=== PATIENT | male | born 1965 | race African-American/Black ===

== ENCOUNTER → 2020-07-07 | Outpatient (CLI) | payer MEDICARE ==
[2020-06-23 11:00] VITALS: BP 115/69
[~2020-07-07] MED LIST: ACET325T9 PO; AMOX1TAB61 PO; DIPHENHYDRAMINE HCL IVP; DOCU-153 PO; LACT1CAP19 PO; PIPE3.377 IV; TRAM50TA PO
[2020-07-07 17:27] LABS: BASO # 0.1 x10^3/uL (0.0-0.2); BASO % 2 % (0-3); EOS # 0.2 x10^3/uL (0.0-0.7); EOS % 5 % (0-3); HEMATOCRIT 31.2 % (39.0-53.0); HEMOGLOBIN 9.9 g/dL (13.0-17.5); LYMPH % 38 % (24-48); MEAN CORPUSCULAR HEMOGLOBIN 24 pg (25-35); MEAN CORPUSCULAR HGB CONC 32 g/dL (31-37); MEAN CORPUSCULAR VOLUME 74 fL (79-100); MONO # 0.4 x10^3/uL (0.0-1.1); MONO % 7 % (0-9); NEUT # 2.5 x10^3/uL (1.8-7.7); NEUT % 48 % (31-73); PLATELET COUNT 284 x10^3/uL (140-400); RED BLOOD COUNT 4.21 x10^6/uL (4.30-5.70); RED CELL DISTRIBUTION WIDTH 15.5 % (11.5-14.5); WHITE BLOOD COUNT 5.2 x10^3/uL (4.0-11.0)
[2020-07-07 17:48] LABS: C-REACTIVE PROTEIN 4.8 mg/L (0-3.3); GFR 93.5
== END ==
LOC: SPEC 17:16
PROVIDERS: ATTEND Internal Medicine Infectious Disease
DX: I96 Gangrene, not elsewhere classified (principal); M86.9 Osteomyelitis, unspecified
CPT/HCPCS: 36415; 82565; 84520; 85025; 86140

== ENCOUNTER 2021-03-23 10:28 | Emergency (ER) | payer MEDICARE ==
[~2021-03-23] VITALS: Ht 185.4 cm; Wt 98.6 kg
[~2021-03-23 10:28] MED LIST changes: +DOCU-148 PO; -DOCU-153 PO
[2021-03-23] MEDS ORDERED: MORPHINE SULFATE 4 MG/ML INJ. IV/SQ PRN (11:00)
[2021-03-23] MEDS ORDERED: cloNIDine HCL 0.1 MG TABLET PO ONE (11:00)
[2021-03-23] MEDS: IV NORMAL SALINE 1000ML BAG 1,000 ML IV SCH ×2 (11:07→11:46)
[2021-03-23] MEDS ORDERED: ERTAPENEM 1GM IVPB(GENERIC) NS 50 ML IV ONE (11:15)
[2021-03-23 11:17] LABS: BASO % 0 % (0-3); EOS # 0.2 x10^3/uL (0.0-0.7); EOS % 2 % (0-3); HEMATOCRIT 39.8 % (39.0-53.0); HEMOGLOBIN 12.6 g/dL (13.0-17.5); LYMPH # 1.2 x10^3/uL (1.0-4.8); LYMPH % 15 % (24-48); MEAN CORPUSCULAR HEMOGLOBIN 24 pg (25-35); MEAN CORPUSCULAR HGB CONC 32 g/dL (31-37); MEAN CORPUSCULAR VOLUME 75 fL (79-100); MONO # 0.6 x10^3/uL (0.0-1.1); MONO % 8 % (0-9); NEUT % 75 % (31-73); PLATELET COUNT 232 x10^3/uL (140-400); RED CELL DISTRIBUTION WIDTH 14.5 % (11.5-14.5); WHITE BLOOD COUNT 8.1 x10^3/uL (4.0-11.0)
[2021-03-23 11:27] LABS: ALBUMIN 3.2 g/dL (3.4-5.0); ALBUMIN/GLOBULIN RATIO 0.7 (1.0-1.7); CALCIUM 8.8 mg/dL (8.5-10.1); GFR 93.5; TOTAL BILIRUBIN 0.5 mg/dL (0.2-1.0); TOTAL PROTEIN 7.9 g/dL (6.4-8.2)
[2021-03-23] MEDS ORDERED: INSULIN REGULAR 100 UNIT/ML 3ML VIAL. IV ONE (11:45)
--- NOTE | 2021-03-23 11:57 | PHYS DOC ---
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 Patient denies any fever. Reports small amount of drainage from the wound on the right third toe. Denies any chest pain or shortness of breath. Denies any injuries. States he does not have a primary care doctor right now. He states around July he had amputation of the right second toe. He states he used to follow-up with infectious disease and wound clinic until his wound healed up. (DARCIE STOCK BALLAST INSPECTOR) Review of Systems: Review of Systems: Constitutional: Denies fever or chills. [] Eyes: Denies change in visual acuity. [] HENT: Denies nasal congestion or sore throat. [] Respiratory: Denies cough or shortness of breath. [] Cardiovascular: Denies chest pain or edema. [] GI: Denies abdominal pain, nausea, vomiting, bloody stools or diarrhea. [] : Denies dysuria. [] Musculoskeletal: Denies back pain or joint pain. [] Integument: Reports wound to the right great toe and right third toe. Neurologic: Denies headache, focal weakness or sensory changes. [] Psychiatric: Denies depression or anxiety. [] (DARCIE STOCK BALLAST INSPECTOR) Heart Score: C/O Chest Pain: N/A Risk Factors: Risk Factors: DM, Current or recent (<one month) smoker, HTN, HLP, family history of CAD, obesity. Risk Scores: Score 0 - 3: 2.5% MACE over next 6 weeks - Discharge Home Score 4 - 6: 20.3% MACE over next 6 weeks - Admit for Clinical Observation Score 7 - 10: 72.7% MACE over next 6 weeks - Early Invasive Strategies (DARCIE STOCK BALLAST INSPECTOR) Current Medications: Current Medications Medications (Trade) Dose Ordered Sig/Glenn Start Time Stop Time Status Last Admin Dose Admin Clonidine HCl (Catapres) 0.1 mg 1X ONCE 03/23/21 11:00 03/23/21 11:01 DC Ertapenem 50 ml @ 100 mls/hr 1X ONCE 03/23/21 11:15 03/23/21 11:44 DC 03/23/21 11:44 100 MLS/HR Insulin Human Regular (HumuLIN R VIAL) 8 unit 1X ONCE 03/23/21 11:45 03/23/21 11:46 Morphine Sulfate (Morphine Sulfate) 4 mg PRN Q15MIN PRN 03/23/21 11:00 03/24/21 10:59 Sodium Chloride 1,000 ml @ 1,000 mls/hr Q1H 03/23/21 11:00 03/23/21 13:23 03/23/21 11:07 1,000 MLS/HR (DARCIE STOCK BALLAST INSPECTOR) Allergies: Allergies: Allergies Coded Allergies Type Severity Reaction Last Updated Verified No Known Drug Allergies 06/20/20 No (DARCIE STOCK BALLAST INSPECTOR) Physical Exam: PE: Constitutional: Well developed, well nourished, no acute distress, non-toxic appearance. [] HENT: Normocephalic, atraumatic, bilateral external ears normal, oropharynx moist, no oral exudates, nose normal. [] Eyes: PERRLA, EOMI, conjunctiva normal, no discharge. [] Neck: Normal range of motion, no tenderness, supple, no stridor. [] Cardiovascular:Heart rate regular rhythm, no murmur [] Lungs & Thorax: Bilateral breath sounds clear to auscultation [] Abdomen: Bowel sounds normal, soft, no tenderness, no masses, no pulsatile masses. [] Skin: Right second toe is missing. Right great toe lateral aspect distal end with the callused area roughly 2 x 2 cm. The area has some open regions. Right third toe with 2 wounds, 1 on the medial aspect proximal and roughly 2 x 0.5 cm, no drainage to this region. Right third toe ventral aspect with another open wound roughly 1 x 1 cm on the proximal end. Adequate sensation to the right toes. +2 right pedal pulse. Full range of motion to the right toes. Cap refill less than 2 seconds the right toes. Back: No tenderness, no CVA tenderness. [] Extremities: No tenderness, no cyanosis, no clubbing, ROM intact, no edema. [] Neurologic: Alert and oriented X 3, normal motor function, normal sensory function, no focal deficits noted. [] Psychologic: Affect normal, judgement normal, mood normal. [] (DARCIE STOCK APRN) Current Patient Data: Labs: Laboratory Tests Test 03/23/21 10:53 White Blood Count 8.1 x10^3/uL (4.0-11.0) Red Blood Count 5.30 x10^6/uL (4.30-5.70) Hemoglobin 12.6 g/dL (13.0-17.5) L Hematocrit 39.8 % (39.0-53.0) Mean Corpuscular Volume 75 fL (79-100) L Mean Corpuscular Hemoglobin 24 pg (25-35) L Mean Corpuscular Hemoglobin Concent 32 g/dL (31-37) Red Cell Distribution Width 14.5 % (11.5-14.5) Platelet Count 232 x10^3/uL (140-400) Neutrophils (%) (Auto) 75 % (31-73) H Lymphocytes (%) (Auto) 15 % (24-48) L Monocytes (%) (Auto) 8 % (0-9) Eosinophils (%) (Auto) 2 % (0-3) Basophils (%) (Auto) 0 % (0-3) Neutrophils # (Auto) 6.0 x10^3/uL (1.8-7.7) Lymphocytes # (Auto) 1.2 x10^3/uL (1.0-4.8) Monocytes # (Auto) 0.6 x10^3/uL (0.0-1.1) Eosinophils # (Auto) 0.2 x10^3/uL (0.0-0.7) Basophils # (Auto) 0.0 x10^3/uL (0.0-0.2) Sodium Level 129 mmol/L (136-145) L Potassium Level 3.0 mmol/L (3.5-5.1) L Chloride Level 91 mmol/L (98-107) L Carbon Dioxide Level 27 mmol/L (21-32) Anion Gap 11 (6-14) Blood Urea Nitrogen 3 mg/dL (8-26) L Creatinine 1.0 mg/dL (0.7-1.3) Estimated GFR (Cockcroft-Gault) 93.5 BUN/Creatinine Ratio 3 (6-20) L Glucose Level 532 mg/dL (70-99) *H Calcium Level 8.8 mg/dL (8.5-10.1) Total Bilirubin 0.5 mg/dL (0.2-1.0) Aspartate Amino Transferase (AST) 10 U/L (15-37) L Alanine Aminotransferase (ALT) 20 U/L (16-63) Alkaline Phosphatase 175 U/L (46-116) H C-Reactive Protein, Quantitative Pending Total Protein 7.9 g/dL (6.4-8.2) Albumin 3.2 g/dL (3.4-5.0) L Albumin/Globulin Ratio 0.7 (1.0-1.7) L Laboratory Tests 03/23/21 10:53 Laboratory Tests 03/23/21 10:53 Vital Signs: Vital Signs Date Time Temp Pulse Resp B/P (MAP) Pulse Ox O2 Delivery O2 Flow Rate FiO2 03/23/21 11:16 66 125/94 03/23/21 11:07 18 99 Room Air 03/23/21 10:32 97.8 97.8 (DARCIE STOCK APRN) EKG: EKG: [] (DARCIE STOCK APRN) Radiology/Procedures: Radiology/Procedures: [] (DARCIE STOCK APRN) Course & Med Decision Making: Course & Med Decision Making Pertinent Labs and Imaging studies reviewed. (See chart for details) This is a 55-year-old male patient presented to the ED today with right great toe and right third toe wounds. Vitals on arrival to the ED temperature 97.8, heart rate 61, respirations 16, blood pressure 185/110, O2 sats 100% on room air. CBC with a normal WBC. Hemoglobin 12.6 with hematocrit of 39.8. Glucose 532, anion gap is normal. Sodium corrected for hyperglycemia is 136. Patient states his tetanus is up-to-date. 1201 pm. Patient requesting to leave AMA. I personally went to his room to talk to him, DEVORAH Mcdowell he was in the room. Patient states he does not want any more treatment. He is alert and oriented x4 and able to make his own decisions. He states he only came here for a cream to apply to the wounds. He states he does not want insulin either despite his blood glucose being in the 500s. Informed patient the risk of leaving AGAINST MEDICAL ADVICE including and disability and losing another toe. He states he has seen many people before and he has already lost a toe. He signed out AMA and left walking out really fast. Dr. Robles also notified. (DARCIE STOCK APRN) Course & Med Decision Making I have reviewed the documentation and agree with above with the following clarifications: Patient was aware of his diagnosis of severe hyperglycemia and likely osteomyelitis, and was alluded to the possibility of potentially life and limb threatening infection. Despite this knowledge he continued to insist that he wanted to be discharged AGAINST MEDICAL ADVICE. Efforts were made to convince him of the severity of his condition, and he was able to demonstrate understanding of the risks of leaving AMA. He was able to ambulate out of the emergency department steadily under his own power. [id number] (JACOBO ROBLES MD) Dragon Disclaimer: Dragon Disclaimer: This electronic medical record was generated, in whole or in part, using a voice recognition dictation system. (DARCIE STOCK APRN) Departure Departure Impression: Primary Impression: Toe ulcer Qualified Codes: L97.512 - Non-pressure chronic ulcer of other part of right foot with fat layer exposed Additional Impressions: Hypokalemia Osteomyelitis Hyperglycemia Disposition: LEFT AGAINST MEDICAL ADVICE Condition: STABLE Referrals: MADISON DENT MD (PCP) DARCIE STOCK APRN Mar 23, 2021 11:57 JACOBO ROBLES MD Mar 23, 2021 13:16
[2021-03-23 11:59] VITALS: BP 129/8
[2021-03-23] MEDS ORDERED: DEXTROSE 50% 25 GM / 50ML DISP.SYRIN. IV PRN (12:00)
[2021-03-23] MEDS ORDERED: POTASSIUM CHLORIDE 20 MEQ TABLET.ER. PO ONE (12:30)
--- NOTE | 2021-03-23 12:52 | RAD ---
EXAM: Right foot 3 views. HISTORY: Nonhealing third toe ulcer. COMPARISON: 06/20/2020. FINDINGS: Three views of the right foot are obtained. Elsewhere as noted along the dorsum of the third proximal interphalangeal joint. There is cortical er osion of the proximal phalangeal head suggesting acute osteomyelitis. Soft tissue gas extends more pr oximally. The distal phalanx is not well profiled in this positioning. There is gas deep to the first toenail. Another soft tissue defect is suspected along the medial aspe ct of the first interphalangeal joint without evidence of acute osteomyelitis. There is tapering of the fourth and fifth distal phalanges which may reflect prior osteomyelitis. The second ray has been amputated through the metatarsal. There is pes planus. 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 No fractu res are identified. IMPRESSION: 1. Evidence of acute osteomyelitis along the dorsum of the third proximal phalangeal head underlying the ulcer. Soft tissue gas within the third digit. Electronically signed by: Dayana Cisneros MD (03/23/2021 12:49 PM) [id number]
[2021-03-23] MEDS ORDERED: POTASSIUM CHLORIDE 20MEQ 100 ML IV ONE (13:00)
[2021-03-23 16:30] LABS: C-REACTIVE PROTEIN 128.8 mg/L (0-3.3)
[2021-03-23] MEDS ORDERED: INSULIN LISPRO 300 UNITS/3 ML VIAL. SQ SCH (17:00)
== END 2021-03-23 12:05 | disposition left against medical advice (07) ==
LOC: ER 10:28
DX: L97.512 Non-pressure chronic ulcer of other part of right foot with fat layer exposed (principal); E87.6 Hypokalemia; M86.8X7 Other osteomyelitis, ankle and foot; R73.9 Hyperglycemia, unspecified; Z87.891 Personal history of nicotine dependence
CPT/HCPCS: 36415; 73630; 80053; 83605; 83735; 85025; 85651; 86140; 87040; 96365; 99284; J1335; J7030